=== PATIENT | female | born 1940 | race Caucasian/White ===

== ENCOUNTER 2019-10-28 17:37 | Inpatient (IN) | payer MEDICARE, OTHER ==
[~2019-10-28] VITALS: Ht 167.6 cm; Wt 72.6 kg
--- NOTE | 2019-10-28 19:25 | NUR ---
GREETED PATIENT AND INTRODUCED MYSELF HER NURSE. PATIENT IS LAYING IN BED JUST FINISHING HER DINNER. PT. IS VERY CONFUSED AT THIS TIME. RESPIRAITONS EVEN. NO S/S OF DISTRESS. CALL LIGHT IN REACH.
--- NOTE | 2019-10-28 19:30 | NUR ---
GREETED PATIENT AND INTRODUCED MYSELF HER NURSE. PATIENT IS LAYING IN BED RESTING AT THIS TIME. ADMISSION PAPER WORK BROUGHT TO PATIENT FOR SIGNATURES. PATIENT IS VISIBLY UPSET AT THIS TIME DUE TO THE FACT THAT SHE DOES NOT HAVE A PRIVATE ROOM. PT. STATED " I WAS PROMISED A PRIVATE ROOM." EXPLAINED TO PATIENT THAT WE WERE FULL AT THIS TIME BUT WOULD BRING TO CASE MANAGEMENTS ATTENTION TOMORROW MORNING. CALL LIGHT IN REACH.
--- NOTE | 2019-10-29 01:47 | NUR ---
PT. LAYING IN BED AWAKE DUE TO PT IN 1111B AWAKE AND RESTLESS. DENIES ANY NEEDS AT THIS TIME. CALL LIGHT IN REACH.
--- NOTE | 2019-10-29 04:08 | NUR ---
PT. RESTING QUIETLY WITH EYES CLOSED. RESPIRATIONS EVEN. NO S/S OF DISTRESS. CALL LIGHT IN REACH.
[2019-10-29 07:16] LABS: BASOPHILS 0.2 % (0-2); EOSINOPHILS 2.7 % (0-7); HEMATOCRIT 42.6 % (36.0-48.0); HEMOGLOBIN 14.3 g/dL (12-16); IMMATURE GRANULOCYTES 0.4 % (0-5); LYMPHOCYTES 27.3 % (15-50); MCH 29.7 pg (26.0-34.0); MCHC 33.6 g/dL (31.0-37.0); MCV 88.4 fL (80.0-100.0); MEAN PLATELET VOLUME 9.4 fL (7.4-10.4); NEUTROPHILS 57.4 % (40-80); PLATELET COUNT 252 10x3/uL (130-400); RBC 4.82 10x6/uL (4.00-5.40); RDW 13.4 % (11.5-14.5)
--- NOTE | 2019-10-29 07:30 | NUR ---
A/A/OX4. DENIES ANY PAIN OR DISCOMFORT AND NO REQUESTS VOICED. STATES SHE DID NOT SLEEP GOOD LAST NIGHT AND JUST WANTS TO REST AT THIS TIME. ASSESSMENT COMPLETED AND WILL COMTINUE POC. BED IN LOW POSITION AND CALL LIGHT IN REACH.
[2019-10-29 07:31] LABS: ANION GAP 11.3 mmol/L (8-16); CALCIUM 9.6 mg/dL (8.5-10.1); CREATININE - SERUM 1.1 mg/dL (0.6-1.3); POTASSIUM - SERUM 3.3 mmol/L (3.5-5.1)
--- NOTE | 2019-10-29 10:00 | NUR ---
I have reviewed this patient and I concur with the Shift Assessment completed by the Licensed Practical Nurse today this shift.
--- NOTE | 2019-10-29 10:40 | NUR ---
CALLED TO ROOM BY [facility] TECH. PT WAS IN SHOWER AND TECH STATES SHE WENT STIFF AND CLONIC, PUPILS WERE DILATED AND FIXED. RAPID RESPONSE CALLED. B/P 89/60 P-90 SPO2-95% BECAME RESPONOSIVE AND ORIENTED X 4. ASSISTED TO W/C/ B/P 105/67 P 89 FSBS 162. 1051 PT NOW FULLY A/A/OX4. ASSISTED PT BACK TO BED AND MADE COMFORTABLE.
--- NOTE | 2019-10-29 11:24 | NUR ---
REPORT OF PT CALLED TO DR. KAYE. ORDER RECEIVED TO HOLD [facility].
[2019-10-29 14:10] VITALS: Ht 167.6 cm; Wt 72.6 kg
--- NOTE | 2019-10-29 17:48 | NUR ---
PT HAS BEEN MOVED TO ROOM 1109 DUE TO REQUESTING PRIVATE ROOM. B/P 110/72. STATE SHE FEELS GOOD AND HAS NOT C/O OR REQUESTS.
--- NOTE | 2019-10-29 19:10 | NUR ---
GREETED PATIENT AND INTRODUCED MYSELF HER NURSE. PATIENT STATES THAT SHE IS SO MUCH HAPPIER TO BE IN A PRIVATE ROOM. RESPIRATIONS EVEN. NO S/S OF DISTRESS. BEDSIDE SHIFT REPORT COMPLETED BY OFF GOING NURSE. PT DENIES ANY FURTHER NEEDS AT THIS TIME. CALL LIGHT IN REACH.
--- NOTE | 2019-10-30 05:49 | NUR ---
PT. RESTING QUIETLY. RESPIRATIONS EVEN. NO S/S OF DISTRESS. CALL LIGHT IN REACH.
[2019-10-30 09:20] LABS: ANION GAP 13.7 mmol/L (8-16); BASOPHILS 0.4 % (0-2); CALCIUM 9.7 mg/dL (8.5-10.1); CARBON DIOXIDE 28.4 mmol/L (21.0-32.0); CREATININE - SERUM 1.3 mg/dL (0.6-1.3); EOSINOPHILS 2.7 % (0-7); IMMATURE GRANULOCYTES 0.8 % (0-5); LYMPHOCYTES 29.2 % (15-50); MCHC 33.3 g/dL (31.0-37.0); MCV 89.9 fL (80.0-100.0); MEAN PLATELET VOLUME 9.6 fL (7.4-10.4); MONOCYTES 11.7 % (2-11); NEUTROPHILS 55.2 % (40-80); PLATELET COUNT 279 10x3/uL (130-400); POTASSIUM - SERUM 3.1 mmol/L (3.5-5.1); RBC 4.67 10x6/uL (4.00-5.40); RDW 13.6 % (11.5-14.5); WBC 7.3 10x3/uL (4.8-10.8)
--- NOTE | 2019-10-30 09:25 | NUR ---
PT AM MEDS ADMINSITERED. NORVASC ON HOLD AND LOPRESSOR NOT GIVEN. WCTM.
--- NOTE | 2019-10-30 11:00 | NUR ---
PT UNABLE TO CONTINUE TO THERAPY D/T DIZZINESS AND LOW BP OF 93/54. PT ASSISTED TO BED AND FEET ELEVATED. WCTM.
--- NOTE | 2019-10-30 19:00 | NUR ---
GREETED PATIENT AND INTRODUCED MYSELF HER NURSE. PATIENT IS LAYING IN BED RESTING AT THIS TIME. STATES THAT SHE IS REALLY TIRED TODAY FROM THERAPY. RESPIRATIONS EVEN. NO S/S OF DISTRESS. BEDSIDE SHIFT REPORT COMPLETE FROM OFF GOING NURSE. CALL LIGHT IN REACH.
--- NOTE | 2019-10-31 02:37 | NUR ---
PT. RESTING QUIETLY WITH EYES CLOSED. RESPIRATIONS EVEN. NO S/S OF DISTRESS. CALL LIGHT IN REACH.
--- NOTE | 2019-10-31 08:00 | NUR ---
PATIENT SITTING UP IN BED TO EAT BREAKFAST. ALERT/ORIENT. CALL LIGHT WITHIN REACH. VOICES NO NEEDS AT THIS TIME. WILL CONTINUE WITH PLAN OF CARE
--- NOTE | 2019-10-31 11:00 | NUR ---
PATIENT IN REHAB ROOM. WORKING WITH PHYSICAL THERAPIST. DENIES ANY PAIN/DISC AT THIS TIME.
--- NOTE | 2019-10-31 19:15 | NUR ---
PT LYING IN BED WATCHING TV. CL IN REACH. DENIES NEEDS OR PAIN AT THIS TIME. BED IN LOW SIDE RAILS X2. RESP EVEN AND UNLABORED. LUNGS CLEAR. BOWEL ACTIVE X4. A/O X4. WILL CONTINUE TO MONITOR.
--- NOTE | 2019-11-01 02:48 | NUR ---
I have reviewed this patient and I concur with the Shift Assessment completed by the Licensed Practical Nurse today this shift.
[2019-11-01 07:40] LABS: BASOPHILS 0.4 % (0-2); EOSINOPHILS 2.6 % (0-7); HEMATOCRIT 40.2 % (36.0-48.0); HEMOGLOBIN 13.2 g/dL (12-16); IMMATURE GRANULOCYTES 0.6 % (0-5); LYMPHOCYTES 29.4 % (15-50); MCH 29.6 pg (26.0-34.0); MCHC 32.8 g/dL (31.0-37.0); MCV 90.1 fL (80.0-100.0); MEAN PLATELET VOLUME 9.7 fL (7.4-10.4); MONOCYTES 10.7 % (2-11); NEUTROPHILS 56.3 % (40-80); PLATELET COUNT 299 10x3/uL (130-400); RBC 4.46 10x6/uL (4.00-5.40); RDW 13.4 % (11.5-14.5); WBC 8.1 10x3/uL (4.8-10.8)
[2019-11-01 07:47] LABS: ANION GAP 9.4 mmol/L (8-16); CALCIUM 9.3 mg/dL (8.5-10.1); CARBON DIOXIDE 29.9 mmol/L (21.0-32.0); CREATININE - SERUM 1.5 mg/dL (0.6-1.3); POTASSIUM - SERUM 3.3 mmol/L (3.5-5.1)
--- NOTE | 2019-11-01 08:00 | NUR ---
PATIENT IS ALERT/ORIENT. CALL LIGHT WITHIN REACH. VOICES NO NEEDS AT THIS TIME. WILL CONTINUE WITH PLAN OF CARE
--- NOTE | 2019-11-01 09:21 | NUR ---
NUTRITION F/U CHART REVIEWED PT VISIT. IN GYM FOR THERAPY. PT STATES HER APPETITE IS IMPROVING. REPORTS ~50% INTAKE BREAKFAST THIS AM. WILL CONTINUE TO PROVIDE REG DIET, HONOR FOOD PREFERENCES. RD FOLLOWING
--- NOTE | 2019-11-01 10:17 | NUR ---
PATIENT IN REHAB ROOM. WORKING WITH PHYSICAL THERAPIST. DENIES ANY PAIN/DISC AT THIS TIME.
--- NOTE | 2019-11-01 14:59 | NUR ---
PATIENT ADMITTED TO REHAB FROM AN OUTSIDE FACILITY. HER PCP IS DR. TURNER. DISCHARGE PLANS ARE FOR PATIENT TO RETURN TO HER HOME. WILL CONTINUE TO FOLLOW WITH PATIENT.
--- NOTE | 2019-11-01 20:00 | NUR ---
AWAKE AND ALERT. RESTING IN BED WITH RESPIRATIONS UNLABORED. NO C/O DISCOMFORTS. NO DISTRESS NOTED. CALL LIGHT IN REACH.
--- NOTE | 2019-11-02 00:16 | NUR ---
RESTING IN BED WITH RESPRIATIONS UNLABORED. NO DISTRESS NOTED. CALL LIGHT IN REACH.
--- NOTE | 2019-11-02 03:29 | NUR ---
SLEEPING WITH RESPIRAITONS UNLABORED. NO DISTRESS NOTED. CALL LIGHT IN REACH.
--- NOTE | 2019-11-02 05:18 | NUR ---
QUIET HOURS. NO ACUTE CHANGES IN CONDITION THIS SHIFT. RESTING IN BED WITH NO DISTRESS NOTED.
--- NOTE | 2019-11-02 09:52 | NUR ---
PT AM MEDS ADMINISTERED. PT PARTICIAPTING IN THERAPY AT THIS TIME. NO BP MEDS GIVEN THIS AM D/T BP BP DECREASING WITH MEDICATIONS. WCTM.
--- NOTE | 2019-11-02 19:43 | NUR ---
AWAKE AND ALERT. RESTING IN BED WITH RESPIRATIONS UNLABORED. NO ACUTE DISTRESS NOTED. CALL LIGHT IN REACH.
--- NOTE | 2019-11-03 01:40 | NUR ---
RESTING IN BED WITH WITH EYES CLOSED AND RESPIRAITONS UNLABORED. NO DISTRESS NOTED.
--- NOTE | 2019-11-03 05:07 | NUR ---
QUEIT HOURS. NO ACUTE DISTRESS NOTED. NO CHANGES IN CONDITION. NO DISTRESS NOTED.
--- NOTE | 2019-11-03 08:07 | NUR ---
PT SITTING UP IN BED EATING BREAKFAST, DENIES NEEDS. WCTM.
--- NOTE | 2019-11-03 09:01 | NUR ---
PT AM MEDS ADMINISTERED WITH EXCEPTION TO BP MEDICATIONS D/T PT BECOMING HYPOTENSIVE WHEN TAKING THESE MEDICATIONS IN THE PAST.
--- NOTE | 2019-11-03 19:31 | NUR ---
AWAKE AND ALERT. RESTING IN BED WITH RESPIRATIONS UNLABORED. NO ACUTE DISTRESS NOTED. CALL LIGHT IN REACH.
--- NOTE | 2019-11-04 01:03 | NUR ---
CONTINUES RESTING IN BED WITH NO DISTRESS NOTED.
--- NOTE | 2019-11-04 03:02 | NUR ---
CONTINUES SLEEPING WITH RESPRIATIONS UNLABORED. NO DISTRESS NOTED.
--- NOTE | 2019-11-04 04:58 | NUR ---
QUIET HOURS. RESTING IN BED WITH NO DISTRESS NOTED. NO ACUTE CHANGES IN CONDITION THIS SHIFT. CALL LIGHT IN REACH.
[2019-11-04 07:06] LABS: BASOPHILS 0.3 % (0-2); EOSINOPHILS 2.9 % (0-7); HEMATOCRIT 38.1 % (36.0-48.0); HEMOGLOBIN 13.1 g/dL (12-16); IMMATURE GRANULOCYTES 0.1 % (0-5); LYMPHOCYTES 30.9 % (15-50); MCH 30.8 pg (26.0-34.0); MCHC 34.4 g/dL (31.0-37.0); MCV 89.4 fL (80.0-100.0); MEAN PLATELET VOLUME 9.6 fL (7.4-10.4); MONOCYTES 10.1 % (2-11); NEUTROPHILS 55.7 % (40-80); PLATELET COUNT 261 10x3/uL (130-400); RBC 4.26 10x6/uL (4.00-5.40); RDW 13.2 % (11.5-14.5); WBC 7.1 10x3/uL (4.8-10.8)
[2019-11-04 07:31] LABS: ANION GAP 9.5 mmol/L (8-16); CALCIUM 9.2 mg/dL (8.5-10.1); CARBON DIOXIDE 28.3 mmol/L (21.0-32.0); CREATININE - SERUM 1.3 mg/dL (0.6-1.3); POTASSIUM - SERUM 3.8 mmol/L (3.5-5.1)
--- NOTE | 2019-11-04 07:34 | NUR ---
ALERT AND ORIENTED. NO DISTRESS NOTED. RESP EVEN AND UNLABORED. CL IN REACH.
--- NOTE | 2019-11-04 12:00 | RHP ---
PATIENT: ALEX GUNDERSON MEDICAL RECORD: [id number] ACCOUNT: [id number] LOCATION:[facility] [id number] : [id number] ADMISSION DATE: 10/28/19 REHABILITATION HISTORY AND PHYSICAL EXAMINATION POST ADMISSION PHYSICIAN EXAMINATION POST ADMISSION PHYSICAL EXAMINATION AND HISTORY AND PHYSICAL DATE OF ADMISSION: 10/28/2019 ADMITTING DIAGNOSIS: CVA. HISTORY OF PRESENT ILLNESS: The patient is an 78-year-old, who was admitted to [facility] on October 31 with a hemorrhagic stroke from [facility]. She had acute onset of nausea, vomiting, dizziness, followed by a fall. She was found by her and taken to the ER. CT revealed a right cerebellar hemorrhage measuring 3 x 1.5 cm with a small amount of extension into the fourth ventricle with no hydrocephalus. CTA and diagnostic angio were negative for an AVM or aneurysm. No intervention was required at that time. Transesophageal echo showed a left ventricular ejection fraction of 65% to 70%. There was no thrombus o [id number] shunt. The patient had a CT on October 23, which showed slight improvement of her cerebellar hematoma. Hospital course was complicated by hypertension. The patient was placed on losartan, amlodipine, hydralazine. Her home BP meds were changed. She has completed a course of Rocephin. She has had some dizziness, but is improving. She is now tolerating a regular diet. Denies pain. Prior to hospitalization, she was living at home with her in a multilevel home, but lives on the main level and has one step to enter. She was independent with ambulation and ADLs. The patient now requires assist with transfers, ambulation, ADLs. She continues to have dizziness with movement; however, this is improved. She has ambulated 4 steps with minimal assist, transfers, and minimal assist and performs ADLs with setup and min assist. Comorbidities include risk of falls, risk of infection, risk of further stroke, risk for aspiration, risk of cardiac arrhythmia, risk of respiratory distress, electrolyte abnormalities, nutrition risk, and hypertension. PAST MEDICAL HISTORY: Significant for hypertension, hyperlipidemia, AR, gastroesophageal reflux disease, paroxysmal supraventricular tach, and valvular carcinoma. PAST SURGICAL HISTORY: Includes bilateral hip replacement and nephrectomy. ALLERGIES: No known drug allergies. CURRENT MEDICATIONS: Include Cozaar 100 mg daily, metoprolol 25 mg daily, Mag-Ox 400 mg daily, hydrochlorothiazide 25 mg daily, Norvasc 10 mg daily, simvastatin 20 mg at bedtime, melatonin 6 mg at bedtime, Ambien 5 mg at bedtime, and polyethylene glycol 17 grams in 8 ounces of water daily. HABITS: No alcohol or tobacco use. FAMILY HISTORY: Noncontributory. SOCIAL HISTORY: The patient hopes to return back home and get back to her prior level of functioning. HISTORY AND PHYSICAL [id number] ALEX GUNDERSON REVIEW OF SYSTEMS: GENERAL: Does complain of some weakness and fatigue, but nonspecific. HEENT: Denies cold, cough, or congestion. CARDIOVASCULAR: Denies any chest pain. LUNGS: Denies any shortness of breath. PHYSICAL EXAMINATION: VITAL SIGNS: Stable, afebrile. GENERAL: Elderly female, in no acute distress upon exam. HEENT: Head is normocephalic and atraumatic. Mucosa moist. NECK: Supple. No lymphadenopathy. LUNGS: Clear at this time. No wheeze, rhonchi, or rales. HEART: Regular rate and rhythm. She does have a holosystolic murmur. ABDOMEN: Soft, benign, nondistended. Positive bowel sounds times 4. EXTREMITIES: No clubbing, cyanosis or edema. NEUROLOGIC: She does have 3-4/5 muscular strength in her lower extremities. She does have some problems with balance. LABORATORY DATA: White count is 8000, H&H of 14 and 42, and platelet count is 252. Sodium is 136, potassium 3.3, BUN and creatinine of 22 and 1.1, and blood sugar is noted to be 90. ASSESSMENT: This is an 78-year-old female patient admitted to the rehab with a working diagnosis of cerebrovascular accident. The patient has potential to make improvement. We will institute the following multidisciplinary therapies including, but not limited to, physical, occupational, respiratory, speech, nutritional services, prosthetics, and orthotics. Given her complex medical condition and risks for more complications, rehabilitation services cannot be provided at a lower level of care such as a skilled nurse facility. PLAN: 1. Admit to [facility] for an inpatient therapy to include the following disciplines; A. Physical therapy to improve gait, all transfer skills, and bed mobility to modified independent level. B. Occupational therapy to help with activities of daily living. C. Case management to assist with discharge planning and placement options. D. Nutrition to assist with nutritional needs. E. Rehabilitation nursing to assist in monitoring the patient's underlying medical conditions and to assist with any type of bowel or bladder management. 2. The patient's current medications and medical care will be continued. 3. The patient will be placed on standard fall precautions. 4. I am going to go ahead and replace potassium. 5. We will see again in the a.m. Follow up her lab work. We will work closely with PT and OT on her balance. Speech therapy to see for her CVA and hopefully will get home soon. TRANSINT:[id number] Voice Confirmation ID: [id number] DOCUMENT ID: [id number] DEIRDRE notes whether there has been none or any medical/functional change since admission: - No change since pre-admission screen. HISTORY AND PHYSICAL [id number] ALEX GUNDERSON attests patient continues to be appropriate for IRF: - Continues to be appropriate. ABBIE KAYE MD at 1200 CC: [id number] DICTATION DATE: 10/29/19 1030 MEDICAL OFFICER: 10/29/19 1120 ADM IN [place] [id number] [place] [address]
--- NOTE | 2019-11-04 13:19 | NUR ---
PARTICIPATED IN THERAPY THIS AM. NO DISTRESS NOTED. IN ROOM. CL IN REACH.
--- NOTE | 2019-11-04 13:22 | NUR ---
PARTICIPATED IN THERAPY THIS AM. NO DISTRESS NOTED. VISITORS IN ROOM.
--- NOTE | 2019-11-04 15:49 | NUR ---
NO CHANGE IN ASSESSMENT. RESTING IN BED WITH EYES CLOSED. RESP EVEN AND UNLABORED. CL IN REACH.
--- NOTE | 2019-11-04 19:15 | NUR ---
PP LYING IN BED WATCHING TV. CL IN REACH. DENIES NEEDS OR PAIN AT THIS TIME. BED IN LOW SIDE RAILS X2. A/O X4. RESP EVEN AND UNLABORED. LUNGS CLEAR. BOWEL ACTIVE X4. WILL CONTINUE TO MONITOR.
--- NOTE | 2019-11-05 00:19 | NUR ---
I have reviewed this patient and I concur with the Shift Assessment completed by the Licensed Practical Nurse today this shift.
--- NOTE | 2019-11-05 09:25 | NUR ---
PATIENT IS ALERT/ORIENT. CALL LIGHT WITHIN REACH. VOICES NO NEEDS AT THIS TIME. WILL CONTINUE WITH PLAN OF CARE
--- NOTE | 2019-11-05 11:00 | NUR ---
PATIENT IN REHAB ROOM. WORKING WITH PHYSICAL THERAPIST. DENIES ANY PAIN/DISC AT THIS TIME.
--- NOTE | 2019-11-05 13:08 | NUR ---
Nutrition Follow-up: Diet: Regular PO intake: ~60% average x last 6 meals; reports "okay" appetite but states that she is getting too much food on meal trays. Denies needs from dietary. States that she is dicharging tomorrow. Last BM: 11/03/19. WT: 160# (10/29/19), no new WT Meds noted: HCTZ. Labs reviewed. Recommend continue current diet. Encourage PO intake. RD following.
--- NOTE | 2019-11-05 15:43 | NUR ---
PATIENT IS A STAND BY ASST FROM BED TO BATHROOM USING A WHEELED WALKER.
--- NOTE | 2019-11-05 19:18 | NUR ---
PT LYING IN BED. CL IN REACH. DENIES NEEDS OR PAIN AT THIS TIME. BED IN LOW SIDE RAILS X2. RESP EVEN AND UNLABORED. LUNGS CLEAR. BOWEL ACTIVE X4. A/O X4. WILL CONTINUE TO MONITOR.
--- NOTE | 2019-11-06 04:01 | NUR ---
I have reviewed this patient and I concur with the Shift Assessment completed by the Licensed Practical Nurse today this shift.
[2019-11-06 07:57] VITALS: BP 125/77
--- NOTE | 2019-11-06 09:21 | NUR ---
PATIENT IS ALERT/ORIENT. CALL LIGHT WITHIN REACH. VOICES NO NEEDS AT THIS TIME. WILL PLAN TO DISCHARGE HOME TODAY.
--- NOTE | 2019-11-06 10:10 | NUR ---
DR Marina KAYE INTO SEE PATIENT. NEW ORDERS TO DISCHARGE TO HOME
--- NOTE | 2019-11-06 11:43 | NUR ---
PATIENT DISCHARGING HOME TODAY WITH FAMILY. PATIENT DECLINES HOME HEALTH AND ANY DME NEEDS AT THIS TIME. DR. TURNER 11/13/2019 @ 11:00. PATIENT CHOICE FORM DECLING HOME HEALTH AND [facility] FORMS SIGNED AND EXPLAINED AND COPIES GIVEN TO PATIENT AND FILED IN CHART. DISCHARGE INSTRUCTIONS FAXED TO PCP AND REVIEWED WITH PATIENT.
--- NOTE | 2019-11-06 13:00 | NUR ---
DISCHARGE INSTRUCTIONS GONE OVER WITH PATIENT AND . DISCHARGE MEDICATIONS CALLED INTO [facility].
== END 2019-11-06 14:02 | disposition home or self-care (01) | DRG 57 ==
LOC: D.REHAB 17:37
PROVIDERS: ADMIT Emergency Medicine; ATTEND Emergency Medicine
DX: I69.30 Unspecified sequelae of cerebral infarction (principal); Z91.81 History of falling; E87.8 Other disorders of electrolyte and fluid balance, not elsewhere classified; I10 Essential (primary) hypertension; R42 Dizziness and giddiness; E78.5 Hyperlipidemia, unspecified; K21.9 Gastro-esophageal reflux disease without esophagitis